=== PATIENT | male | born 1945 | race Caucasian/White ===

== ENCOUNTER 2018-08-06 08:35 | Observation (INO) ==
--- NOTE | 2018-07-17 08:15 | EKG Report ---
Test Performed on : 07/17/2018 07:53:38 AM Test Reason : PAT Blood Pressure : / mmHG Vent. Rate : 066 BPM Atrial Rate : 066 BPM P-R Int : 182 ms QRS Dur : 092 ms QT Int : 390 ms P-R-T Axes : 074 077 -05 degrees QTc Int : 408 ms Normal sinus rhythm. Nonspecific ST and T wave abnormality Abnormal ECG No previous ECGs available Unconfirmed Result
[2018-07-17 08:41] LABS: URINE SOURCE CLEAN CATCH
[2018-07-17 09:20] LABS: BASO# 0.04 X1000 (0.0-0.2); BASO% 0.5 % (0.0-0.8); BILIRUBIN URINE NEGATIVE (NEGATIVE); BLOOD URINE NEGATIVE (NEGATIVE); COLOR YELLOW; EOS# 0.38 X1000 (0.0-0.7); EOS% 4.9 % (0.0-10.0); GLUCOSE URINE NEGATIVE (NEGATIVE); HEMATOCRIT 41.8 % (42.0-52.0); HEMOGLOBIN 13.4 g/dL (14.0-18.0); IMM GRAN# 0.04 X1000 (0.0-0.04); IMM GRAN% 0.5 % (0.0-0.5); INR 1.04; KETONE URINE NEGATIVE (NEGATIVE); LEUKOCYTES URINE NEGATIVE (NEGATIVE); LYMPH# 2.48 X1000 (1.2-3.4); LYMPH% 31.7 % (20.5-51.1); MCH 26.5 PG (27-31); MCHC 32.1 g/dL (33-37); MCV 82.8 FL (81-99); MONO# 0.96 X1000 (0.11-0.59); MONO% 12.3 % (1.7-9.3); MPV 10.2 FL (7.4-10.4); NEUT# 3.93 X1000 (1.4-6.5); NEUT% 50.1 % (42.2-75.2); NITRITE URINE NEGATIVE (NEGATIVE); PLT 249 X1000 (130-400); PROTEIN URINE NEGATIVE (NEGATIVE); PROTIME 14.4 Seconds (11.0-16.0); RBC 5.05 XMIL (4.7-6.1); RDW 13.8 % (11.5-14.5); SP GRAVITY URINE 1.018; TURBIDITY URINE CLEAR (CLEAR); UROBILINOGEN URINE NORMAL (NORMAL); WBC 7.83 X1000 (4.8-10.8)
[2018-07-17 09:22] LABS: UR EPITHELIAL CELLS <10 /HPF (<10); URINE BACTERIA NEGATIVE /HPF; URINE RBC <10 /HPF (<10); URINE WBC <10 /HPF (<10)
[2018-07-17 09:35] LABS: CALCIUM 9.4 mg/dL (8.8-10.2); CREATININE 1.3 mg/dL (0.7-1.2); POTASSIUM 4.5 mmol/L (3.5-5.1)
[2018-08-06] MEDS ORDERED: COLACE ONE (08:58)
[2018-08-06] MEDS ORDERED: PEPCID ONE (08:58)
[2018-08-06] MEDS ORDERED: REGLAN ONE (08:58)
[2018-08-06] MEDS ORDERED: LYRICA ONE (08:59)
[2018-08-06] MEDS ORDERED: CELEBREX ONE (08:59)
[2018-08-06] MEDS ORDERED: KEFZOL 2 GM/D5W 2 GM/50 ML IVPB ONE (08:59)
[2018-08-06] MEDS ORDERED: LR 1,000 ML ONE (08:59)
[2018-08-06] MEDS ORDERED: DIPRIVAN 1% 500 MG/50 ML BOTTLE ONE (10:07)
[2018-08-06] MEDS ORDERED: VERSED ONE (10:27)
[2018-08-06] MEDS ORDERED: VANCOMYCIN ONE (10:38)
[2018-08-06] MEDS ORDERED: MARCAINE 0.25% PF ONE (10:38)
[2018-08-06] MEDS ORDERED: DURAMORPH ONE (10:38)
[2018-08-06] MEDS ORDERED: TORADOL ONE (10:38)
[2018-08-06] MEDS ORDERED: CYKLOKAPRON 1,000 MG/NS 1,000 MG/100 ML IVPB ONE ×2 (10:39→10:40)
[2018-08-06] MEDS ORDERED: NEOSPORIN G.U. IRRIGANT ONE (10:39)
[2018-08-06] MEDS ORDERED: SODIUM CHLORIDE 0.9% ONE (10:39)
[2018-08-06] MEDS ORDERED: EXPAREL 1.3% ONE (10:39)
[2018-08-06] MEDS ORDERED: FENTANYL ONE (10:40)
[2018-08-06 11:37] LABS: URINE SOURCE CATH
[2018-08-06 11:52] LABS: BILIRUBIN URINE NEGATIVE (NEGATIVE); BLOOD URINE NEGATIVE (NEGATIVE); COLOR YELLOW; GLUCOSE URINE NEGATIVE (NEGATIVE); KETONE URINE NEGATIVE (NEGATIVE); LEUKOCYTES URINE NEGATIVE (NEGATIVE); NITRITE URINE NEGATIVE (NEGATIVE); PROTEIN URINE NEGATIVE (NEGATIVE); SP GRAVITY URINE 1.021; TURBIDITY URINE HAZY (CLEAR); UROBILINOGEN URINE NORMAL (NORMAL)
[2018-08-06] MEDS ORDERED: DECADRON ONE (11:53)
[2018-08-06] MEDS ORDERED: OFIRMEV 1000 MG/ISOTONIC SOLN 1,000 MG/100 ML BOTTLE ONE (11:53)
[2018-08-06] MEDS ORDERED: ZOFRAN ONE (11:53)
[2018-08-06 11:54] LABS: UR EPITHELIAL CELLS <10 /HPF (<10); URINE BACTERIA NEGATIVE /HPF; URINE WBC <10 /HPF (<10)
[2018-08-06] MEDS ORDERED: DIPRIVAN 1% ONE (11:56)
[2018-08-06] MEDS ORDERED: NS 1,000 ML ONE (12:52)
--- NOTE | 2018-08-06 13:02 | Diag Imaging Result Doc PS360 ---
KNEE 1-2 VIEWS-RIGHT - 08/06/2018 INDICATION: post op TECHNIQUE: Two views COMPARISON: None FINDINGS: There has been right total knee arthroplasty. Alignment is anatomic. No hardware fracture or loosening. IMPRESSION: No complication. Electronically signed by Waqas Fishman 08/06/2018 1:00 PM
[2018-08-06] MEDS ORDERED: OXY IR ONE (13:24)
[2018-08-06] MEDS ORDERED: OXY IR PO PRN (13:30)
[2018-08-06] MEDS ORDERED: MORPHINE IV PRN ×3 (13:30)
[2018-08-06] MEDS ORDERED: ZOFRAN IV PRN (13:30)
[2018-08-06] MEDS ORDERED: ZOFRAN ODT PO PRN (13:30)
[2018-08-06] MEDS ORDERED: AMBIEN PO PRN (13:30)
--- NOTE | 2018-08-06 13:46 | OPERATIVE NOTE ---
PROCEDURE DATE: 08/06/2018 PREOPERATIVE DIAGNOSIS: Degenerative joint disease right knee. POSTOPERATIVE DIAGNOSIS: Degenerative joint disease right knee. PROCEDURE PERFORMED: Right total knee replacement. SURGEON: Jose Guadalupe Murphy MD. C.O.D. CLERK: ZAKIYA Fox. Mr. Hedrick was necessary for proper retraction and manipulation of the knee during the surgery. ANESTHESIA: Spinal. COMPLICATIONS: None. PROCEDURE IN DETAIL: A 72-year-old male presents for right knee replacement. Risks, benefits, and no guarantees were discussed. And the patient is willing to proceed. He was taken to the operating room and satisfactory anesthesia obtained. The right leg was prepped and draped in usual sterile fashion. A time-out was taken to confirm operative site, procedure, and patient. The leg was wrapped with an Esmarch and tourniquet inflated to 300 mmHg. A midline incision was made over the front of the knee followed by a quad tendon sparing arthrotomy. The patella was everted and resurfaced with freehand technique and subluxed laterally. The knee was flexed. An intramedullary hole was made in the distal femur and the distal femoral cutting block secured in 5 degrees of valgus. Distal femoral resection was made and the distal femur sized to a size 7 DePuy CITIAune implant. The 4 in 1 block was secured and the anterior, posterior, and chamfer cuts sequentially made. Any osteophytes were debrided. The knee was flexed. A PCL retractor placed behind the tibia to protect the PCL and neurovascular bundle as well as collateral ligament retractors. The tibial cutting block was secured and the tibial resection made. The tibia was sized to a size 8 tibial tray. A trial reduction was performed with an 8 tibial tray, a 5 mm thick poly, and a size 7 trial femur with good range of motion and stability. The patella was sized to a 38 medialized dome patella with midline patellar tracking. The lug holes were placed for the femoral implant and the patella, and all trial components were removed. The bony surfaces were thoroughly irrigated with pulsatile lavage and then dried. Cement with a gram of vancomycin was utilized to cement a size 8 tibial tray, a size 7 right cruciate retaining femoral component, and a 38 medialized dome patella. While the cement cured, the excess cement was removed with a [place] elevator. The joint capsule was injected with Exparel and a Hemovac drain placed. Afterwards, size 7, 5 mm thick cruciate retaining polyethylene bearing was inserted into the tibial tray and the knee reduced. Final range of motion was 0 to 135 degrees with midline patellar tracking. Good soft tissue balance was noted. The arthrotomy was copiously irrigated with irrigant and closed over the drain with #1 Vicryl in the arthrotomy, 2-0 Vicryl in the subcutaneous, and skin noah on the skin edges. Sterile dressings completed the closure, and the patient was recovered from anesthesia and transferred to the recovery room in stable condition. No intraoperative complications were noted. Instrument count and sponge count was correct at the time of closure. cc: Reese Murphy MD
--- NOTE | 2018-08-06 15:04 | PROGRESS NOTE ---
DATE: 08/06/2018 SUBJECTIVE DATA: Mr. Nguyễn reports he has been up here on the fourth floor for about 30 minutes. He is on postop day zero of right total knee arthroplasty. He reports his pain is 1/10 at this time. He reports that his knee also feels much better than it did before surgery. OBJECTIVE DATA: There is good sensation right lower extremity. The bandages are clean and dry. There is good capillary refill. There is negative Homans sign. There was good sensation to the right lower extremity. The patient can flex his quadriceps muscles without difficulty. ASSESSMENT: Degenerative joint disease, right knee with total knee arthroplasty. PLAN: We will plan on sending Mr. Nguyễn home tomorrow with outpatient therapy per request. We will check back on him in the morning and see how he is doing. Dictated by ZAKIYA Fox for Reese Murphy MD cc: ZAKIYA Fox MD
[2018-08-06] MEDS: NS 1,000 ML IV SCH (16:12)
[2018-08-06] MEDS: ULTRAM PO SCH ×2 (17:44→20:46)
[2018-08-06] MEDS: KEFZOL 2 GM/D5W 2 GM/50 ML IVPB IV SCH (18:25)
[2018-08-06] MEDS: PERIDEX MT SCH (20:45)
[2018-08-06] MEDS: TYLENOL PO SCH (20:46)
[2018-08-06] MEDS: COLACE PO SCH (20:46)
[2018-08-06] MEDS: CELEBREX PO SCH (20:46)
[2018-08-06] MEDS: OXY IR PO PRN (22:15)
[2018-08-06] MEDS ORDERED: CATAPRES PO PRN (23:46)
[2018-08-07] MEDS: OXY IR PO PRN (01:19)
[2018-08-07] MEDS: NS 1,000 ML IV SCH ×2 (01:20→05:56)
[2018-08-07] MEDS: KEFZOL 2 GM/D5W 2 GM/50 ML IVPB IV SCH (02:51)
[2018-08-07 05:51] LABS: HEMATOCRIT 33.5 % (42.0-52.0); HEMOGLOBIN 10.8 g/dL (14.0-18.0)
[2018-08-07] MEDS: TYLENOL PO SCH ×2 (05:56→08:27)
[2018-08-07] MEDS: ULTRAM PO SCH ×2 (05:57→08:28)
[2018-08-07 06:20] LABS: CALCIUM 8.8 mg/dL (8.8-10.2); CREATININE 1.3 mg/dL (0.7-1.2); POTASSIUM 4.8 mmol/L (3.5-5.1)
--- NOTE | 2018-08-07 07:26 | PROGRESS NOTE ---
DATE: 08/07/2018 Mr. Nguyễn is seen status post total knee replacement. He is afebrile with stable vital signs. He is motor and sensory intact. His bandage is clean and dry. His pain is well controlled. We will change his bandage and discontinue his lines today. He can be discharged home with outpatient therapy. We will see him back in roughly 12 days for staple removal. He can return in the interim for any worsening signs or symptoms. cc: Reese Murphy MD
[2018-08-07] MEDS: PERIDEX MT SCH (08:28)
[2018-08-07] MEDS: CELEBREX PO SCH (08:28)
[2018-08-07] MEDS: COLACE PO SCH (08:28)
[2018-08-07] MEDS ORDERED: PEPCID PO SCH (09:00)
[2018-08-07] MEDS ORDERED: ASPIRIN PO SCH (09:00)
[2018-08-07] MEDS ORDERED: SYNTHROID PO SCH (09:00)
[2018-08-07 11:57] VITALS: BP 154/83
== END 2018-08-07 10:59 | disposition home or self-care (01) ==
LOC: 4N 08:35 → OR 08:35
PROVIDERS: ADMIT Orthopaedic Surgery Adult Reconstructive Orthopaedic Surgery; ATTEND Orthopaedic Surgery Adult Reconstructive Orthopaedic Surgery
CPT/HCPCS: 73560; 80048; 81001; 85014; 85018; 85025; 85610; 85730; 86850; 86900; 86901; 88305; 88311; 93005; 93010; 94761; 94799; 97162; 97530; A9270; C9290; J0131; J0690; J1100; J1885; J2250; J2274; J2275; J2405; J3010; J3370; J7030; J7120; Q9974; S0020